=== PATIENT | male | born 1935 | race Caucasian/White ===

== ENCOUNTER 2017-03-17 09:17 | Observation (INO) | payer OTHER ==
[~2017-03-17] VITALS: Ht 177.8 cm; Wt 97.8 kg
[~2017-03-17 09:17] MED LIST: ALAWAY10 ML BOTH EYES; ALLOPURINOL100 MG PO; ASPIR 8181 M1 PO; ASPIR-TRIN325 M1 PO; ASPIRIN325 MG PO; Allopurinol PO; Aspirin PO; Ativan PO; CLOBETASOL PROP50 ML TP; CLOBETASOL PROP60 GM TP; COLACE100 MG PO; COUMADIN2.5 MG PO; Colace PO; Coumadin,Jantoven PO; DESYREL100 MG PO; DILAUDID2 MG PO; DIOVAN80 MG PO; DOXEPIN HCL PO; DOXEPIN HCL10 MG PO; Desyrel PO; Dilaudid PO; Diovan PO; Ecotrin PO; FLEXERIL10 MG PO; FLONASE16 G1 BOTH NARES; HALOBETASOL PRO15 G1 TP; HYDROXYZINE PO; KEFLEX500 MG PO; KETOCONAZOLE120 ML TP; Kenalog 0.1% Cream TP; LOPRESSOR25 MG PO; LOPRESSOR50 MG PO; Lopressor PO; MELADOX3 MG PO; MELATONIN3 MG PO; METOPROLOL TART25 MG PO; METOPROLOL TART50 MG PO; Melatonin PO; Metoprolol Tartrate PO; NAPROSYN500 MG PO; NITROSTAT0.4 MG SL; PANTOPRAZOLE SO40 MG PO; PRAVACHOL20 MG PO; PRAVASTATIN SOD20 MG PO; PROTONIX20 MG PO; PROTONIX40 MG PO; Pravachol PO; Pravastatin Sodium PO; Protonix PO; SINEquan PO; TRAZODONE HCL100 MG PO; TRAZODONE HCL150 MG PO; Trazodone HCl PO; Tylenol Extra Streng PO; ULTRAVATE 0.05%15 GM TP; VALSARTAN80 MG PO; ZOLOFT100 MG PO; ZOLOFT50 MG PO; ZYLOPRIM100 MG PO; Zyloprim PO; [UNRECOGNIZED DRUG - OTHER] PO
[2017-03-17 10:16] LABS: HEMATOCRIT 35.5 % (38.0-50.0); MCHC 33.5 G/DL (30.0-36.0); MCV 89.4 FL (86-99); PLATELET COUNT 215 K/uL (156-360); RBC DIS.WIDTH-CV 13.3 % (11.8-14.6); RBC DIS.WIDTH-SD 43.9 % (39-53); RED BLOOD COUNT 3.97 M/uL (4.00-5.50)
[2017-03-17 10:24] LABS: CHLORIDE 106 mEq/L (99-109); POTASSIUM 4.2 mEq/L (3.7-5.4); SODIUM 136 mEq/L (136-147)
[2017-03-17 10:25] LABS: GLUCOSE 152 mg/dL (70-99)
[2017-03-17 10:27] LABS: ANION GAP 12 MEQ/L (2-14)
[2017-03-17 10:29] LABS: GFR ESTIMATE (CALCULATED) 48 mL/min/
[2017-03-17 10:30] LABS: UREA NITROGEN (BUN) 19 mg/dL (9-23)
[2017-03-17 10:36] LABS: TROP-I INTERPRETATION NEGATIVE; TROPONIN-I < 0.01 ng/mL (0.0-0.30)
[2017-03-17] MEDS ORDERED: VALSARTAN80 MG PO (13:21)
[2017-03-17] MEDS ORDERED: MELATONIN5 M1 PO (13:22)
[2017-03-17] MEDS ORDERED: AUGMENTIN875 MG PO (13:22)
[2017-03-17] MEDS ORDERED: HALOBETASOL PRO15 GM TP (13:25)
[2017-03-17 14:00] VITALS: BP 123/60; BP 138/63; BP 152/65
[2017-03-17 16:25] VITALS: BP 133/63
[2017-03-17 16:38] VITALS: BP 137/71
[2017-03-17 18:35] LABS: TROP-I INTERPRETATION NEGATIVE; TROPONIN-I < 0.01 ng/mL (0.0-0.30)
[2017-03-17 19:46] LABS: METH RESISTANT S AUREUS PCR NEGATIVE (NEGATIVE)
[2017-03-17 19:53] LABS: PROBE CHECK PASS; SPECIMEN PROCESSING CONTROL PASS
[2017-03-17 20:00] VITALS: BP 136/68
[2017-03-18] VITALS: BP 132/69
[2017-03-18 01:21] LABS: TROP-I INTERPRETATION NEGATIVE; TROPONIN-I < 0.01 ng/mL (0.0-0.30)
[2017-03-18 03:40] VITALS: BP 116/55
[2017-03-18 05:51] LABS: ANION GAP 9 MEQ/L (2-14); CHLORIDE 110 MEQ/L (99-109); GFR ESTIMATE (CALCULATED) 56 mL/min/; POTASSIUM 4.1 MEQ/L (3.7-5.4); SAMPLE HEMOLYSIS CHECK 0; SAMPLE ICTERIC CHECK 0; SAMPLE LIPEMIA CHECK 0; SODIUM 140 MEQ/L (136-147); UREA NITROGEN (BUN) 16 mg/dL (9-23)
[2017-03-18 05:52] LABS: GLUCOSE 110 mg/dL (70-99)
[2017-03-18 09:00] VITALS: BP 131/63; BP 132/66; BP 151/75
== END 2017-03-18 12:17 | disposition home or self-care (01) ==
LOC: EME 09:17 → EDOF 12:46 → 5WEST 14:04
PROVIDERS: Emergency Medicine; Hospitalist
DX: R55 Syncope and collapse (principal); R53.1 Weakness; E86.0 Dehydration; E11.9 Type 2 diabetes mellitus without complications; I25.10 Atherosclerotic heart disease of native coronary artery without angina pectoris; Z95.5 Presence of coronary angioplasty implant and graft; I49.5 Sick sinus syndrome; Z95.0 Presence of cardiac pacemaker; I11.0 Hypertensive heart disease with heart failure; I50.42 Chronic combined systolic (congestive) and diastolic (congestive) heart failure; Z96.652 Presence of left artificial knee joint; Z88.5 Allergy status to narcotic agent; Z79.82 Long term (current) use of aspirin; R05 Cough
CPT/HCPCS: 71010; 80048; 84484; 85027; 87641; 93005; 99281; 99285; G0378; J1644; J7030